=== PATIENT | male | born 1960 | race African-American/Black ===

== ENCOUNTER 2021-09-06 11:06 | Outpatient (RCR) | payer OTHER ==
[~2021-09-06 11:06] MED LIST: LIDOCAINE VISC 2% SOLN 15 ML UDC ONE
[2021-09-06 14:30] LABS: BASOPHILS % 0.4 % (0.0-1.0); EOSINOPHILS # (AUTO) 0.2 (0.0-0.4); EOSINOPHILS % 1.3 % (0.0-6.0); HEMATOCRIT 26.1 % (38.2-49.6); HEMOGLOBIN 8.2 g/dL (14.0-18.0); LYMPHOCYTES # (AUTO) 4.4 (1.0-3.2); LYMPHOCYTES % 38.8 % (18.0-39.1); MEAN CORPUSCULAR HEMOGLOBIN 30.3 pg (28-32); MEAN CORPUSCULAR HGB CONC 31.4 g/dL (31-35); MEAN CORPUSCULAR VOLUME 96.3 fL (81-99); MONOCYTES # (AUTO) 0.7 (0.2-0.8); MONOCYTES % 5.8 % (4.4-11.3); NEUTROPHILS % 53.3 % (38.7-80.0); PLATELET COUNT 308 x10e3/uL (140-360); RED BLOOD COUNT 2.71 x10e6/uL (4.3-5.7); RED CELL DISTRIBUTION WIDTH 17.8 % (11.7-14.4)
[2021-09-06 14:53] LABS: ALBUMIN 2.4 g/dL (3.5-5.0); ALBUMIN/GLOBULIN RATIO 0.6 (0.8-2.0); ANION GAP 13.7 mmol/L (8-16); CALCIUM 7.7 mg/dL (8.4-10.2); CREATININE, SERUM 1.17 mg/dL (0.72-1.25); POTASSIUM 3.7 mmol/L (3.5-5.1)
[2021-09-06] MEDS ORDERED: LIDOCAINE VISC 2% SOLN 15 ML UDC ONE (15:41)
[2021-09-06] MEDS ORDERED: MUPIROCIN 2% OINT 22 GM TUBE ONE (15:41)
== END 2021-09-14 ==
LOC: WCC 11:06
PROVIDERS: ATTEND Family Medicine
DX: I70.261 Atherosclerosis of native arteries of extremities with gangrene, right leg (principal); I70.262 Atherosclerosis of native arteries of extremities with gangrene, left leg; I70.268 Atherosclerosis of native arteries of extremities with gangrene, other extremity; L97.518 Non-pressure chronic ulcer of other part of right foot with other specified severity; L97.528 Non-pressure chronic ulcer of other part of left foot with other specified severity; L98.498 Non-pressure chronic ulcer of skin of other sites with other specified severity; A41.9 Sepsis, unspecified organism; I82.491 Acute embolism and thrombosis of other specified deep vein of right lower extremity; R65.11 Systemic inflammatory response syndrome (SIRS) of non-infectious origin with acute organ dysfunction; L60.8 Other nail disorders; R60.0 Localized edema; J96.01 Acute respiratory failure with hypoxia; N18.30 Chronic kidney disease, stage 3 unspecified; I10 Essential (primary) hypertension; I50.32 Chronic diastolic (congestive) heart failure; M51.26 Other intervertebral disc displacement, lumbar region; F33.0 Major depressive disorder, recurrent, mild; F11.20 Opioid dependence, uncomplicated; Z99.3 Dependence on wheelchair
CPT/HCPCS: 36415; 80053; 84134; 85025

== ENCOUNTER → 2021-09-19 | Outpatient (CLI) | payer OTHER | LOC: CARD 11:32 | PROVIDERS: ATTEND Family Medicine | DX: I70.268 Atherosclerosis of native arteries of extremities with gangrene, other extremity (principal); L98.498 Non-pressure chronic ulcer of skin of other sites with other specified severity | CPT/HCPCS: 93931; 93971 ==

== ENCOUNTER 2021-09-27 13:06 | Outpatient (RCR) | payer OTHER ==
[2021-09-27] MEDS ORDERED: LIDOCAINE VISC 2% SOLN 15 ML UDC ONE (14:59)
[2021-09-27] MEDS ORDERED: MUPIROCIN 2% OINT 22 GM TUBE ONE (14:59)
== END 2021-10-15 ==
LOC: WCC 13:06
PROVIDERS: ATTEND Family Medicine
DX: A41.9 Sepsis, unspecified organism (principal); J96.01 Acute respiratory failure with hypoxia; R65.11 Systemic inflammatory response syndrome (SIRS) of non-infectious origin with acute organ dysfunction; L97.518 Non-pressure chronic ulcer of other part of right foot with other specified severity; L97.528 Non-pressure chronic ulcer of other part of left foot with other specified severity; L98.498 Non-pressure chronic ulcer of skin of other sites with other specified severity; I70.261 Atherosclerosis of native arteries of extremities with gangrene, right leg; I70.262 Atherosclerosis of native arteries of extremities with gangrene, left leg; I70.268 Atherosclerosis of native arteries of extremities with gangrene, other extremity; L60.8 Other nail disorders; I82.491 Acute embolism and thrombosis of other specified deep vein of right lower extremity; R60.0 Localized edema; I50.32 Chronic diastolic (congestive) heart failure; N18.30 Chronic kidney disease, stage 3 unspecified; I10 Essential (primary) hypertension; F06.8 Other specified mental disorders due to known physiological condition; F11.20 Opioid dependence, uncomplicated; F33.0 Major depressive disorder, recurrent, mild; M51.26 Other intervertebral disc displacement, lumbar region; Z99.3 Dependence on wheelchair